=== PATIENT | female | born 1940 | race African-American/Black ===

== ENCOUNTER 2022-05-28 20:57 | Emergency (ER) | payer MEDICARE, MEDICAID ==
[~2022-05-28] VITALS: Ht 188 cm; Wt 82.0 kg
[2022-05-28] MEDS ORDERED: PECT2.8L4 MM (23:36)
[2022-05-29 01:10] VITALS: BP 112/78
[2022-05-29] MEDS ORDERED: OXYMETAZOLINE HCL NASAL SPRAY 15ML BOTHNSTRLS SCH (09:00)
== END 2022-05-29 01:18 | disposition home or self-care (01) ==
LOC: ER 20:57
DX: J04.0 Acute laryngitis (principal); I10 Essential (primary) hypertension; E78.00 Pure hypercholesterolemia, unspecified
CPT/HCPCS: 99283